=== PATIENT | female | born 1950 | race Caucasian/White ===

== ENCOUNTER → 2016-07-11 | Outpatient (CLI) | payer OTHER ==
[~2016-07-11] MED LIST: MELO-184 PO; losartan PO; tramadol PO
== END | disposition home or self-care (01) ==
LOC: STAR 13:54
PROVIDERS: ATTEND Orthopaedic Surgery
DX: Z01.818 Encounter for other preprocedural examination (principal); M17.12 Unilateral primary osteoarthritis, left knee
CPT/HCPCS: 87081

== ENCOUNTER 2016-07-15 10:15 | Inpatient (IN) | payer OTHER ==
[2016-07-11 14:25] VITALS: BP 160/102
[~2016-07-15] VITALS: Ht 154.9 cm; Wt 83.0 kg
[2016-07-15] MEDS ORDERED: VANCOMYCIN PER PHARMACY MC STA (10:30)
[2016-07-15] MEDS ORDERED: LACTATED RINGERS 1,000 ML IV SCH (10:53)
[2016-07-15] MEDS ORDERED: LIDOCAINE 1%, 2ML ONE (10:58)
[2016-07-15] MEDS ORDERED: VANCOMYCIN 1,200 MG in SODIUM CHLORIDE 0.9% 250 ML IV ONE (11:00)
[2016-07-15] MEDS ORDERED: OxyconTIN ER 10 MG TAB.ER PO ONE (11:00)
[2016-07-15] MEDS ORDERED: LIDOCAINE 1%, 2ML SQ PRN (11:30)
[2016-07-15] MEDS ORDERED: TRANEXAMIC ACID 100 MG/ML, 10ML ONE ×4 (12:16)
[2016-07-15] MEDS ORDERED: KETOROLAC 60 MG/2 ML ONE (12:16)
[2016-07-15] MEDS ORDERED: VANCOMYCIN 1,000 MG ONE (12:17)
[2016-07-15] MEDS ORDERED: ROPIvacaine/PF 0.2%, 20 ML ONE (12:17)
[2016-07-15] MEDS ORDERED: EPINEPHRINE 1 MG/ML, 1ML ONE (12:17)
[2016-07-15] MEDS ORDERED: SODIUM CHLORIDE 0.9% 50 ML ONE (12:17)
[2016-07-15] MEDS ORDERED: FENTANYL PF 250 MCG/5ML ONE (12:35)
[2016-07-15] MEDS ORDERED: ROCURONIUM 10 MG/ML ONE (12:42)
[2016-07-15] MEDS ORDERED: PROPOFOL 10 MG/ML, 20ML ONE (12:42)
[2016-07-15] MEDS ORDERED: ONDANSETRON 2MG/ML, 2ML ONE (12:42)
[2016-07-15] MEDS ORDERED: GLYCOPYRROLATE 0.2MG/1ML ONE (12:42)
[2016-07-15] MEDS ORDERED: hydrALAzine 20 MG/ML, 1ML ONE (12:42)
[2016-07-15] MEDS ORDERED: CEFAZOLIN 1,000 MG ONE (12:42)
[2016-07-15] MEDS ORDERED: DEXAMETHASONE 4 MG/ML, 1ML ONE (12:42)
[2016-07-15] MEDS ORDERED: METOPROLOL 1 MG/ML, 5ML ONE (12:42)
[2016-07-15] MEDS ORDERED: NEOSTIGMINE 1 MG/ML, 10ML ONE (12:42)
[2016-07-15] MEDS ORDERED: METOPROLOL 1 MG/ML, 5ML IV PRN (13:30)
[2016-07-15] MEDS ORDERED: HYDROmorphone 1 MG/ML, 1ML IV PRN ×2 (13:30→15:30)
[2016-07-15] MEDS ORDERED: HYDROcodone/APAP 7.5-325MG/15ML UDC PO PRN (13:30)
[2016-07-15] MEDS ORDERED: FENTANYL PF 100 MCG/2ML IV PRN (13:30)
[2016-07-15] MEDS ORDERED: MEPERIDINE/PF 25MG/0.5ML IVPush PRN (13:30)
[2016-07-15] MEDS ORDERED: hydrALAzine 20 MG/ML, 1ML IV PRN (13:30)
[2016-07-15] MEDS ORDERED: ACETAMINOPHEN 325 MG TABLET PO PRN (13:30)
[2016-07-15] MEDS ORDERED: ALBUTEROL/IPRATROPIUM 2.5MG/0.5MG, 3 ML NPPB PRN (13:30)
[2016-07-15] MEDS ORDERED: MIDAZOLAM 1 MG/ML, 2ML ONE (13:43)
[2016-07-15] MEDS ORDERED: FENTANYL PF 100 MCG/2ML ONE ×2 (14:02→15:34)
[2016-07-15] MEDS ORDERED: ONDANSETRON 4 MG TABLET PO PRN (15:30)
[2016-07-15] MEDS ORDERED: ONDANSETRON 2MG/ML, 2ML IV PRN (15:30)
[2016-07-15] MEDS ORDERED: PROMETHAZINE 12.5 MG SUPP PR PRN (15:30)
[2016-07-15] MEDS ORDERED: DIPHENHYDRAMINE 25 MG CAPSULE PO PRN (15:30)
[2016-07-15] MEDS ORDERED: SENNA/DOCUSATE TABLET PO PRN (15:30)
[2016-07-15] MEDS ORDERED: MAGNESIUM HYDROXIDE 8%, 30ML UDC PO PRN (15:30)
[2016-07-15] MEDS ORDERED: ACETAMINOPHEN 650 MG/20.3 ML UDC PO PRN (15:30)
[2016-07-15] MEDS ORDERED: PROMETHAZINE 25 MG/ML, 1ML IM PRN (15:30)
[2016-07-15] MEDS ORDERED: DIAZEPAM 5 MG TABLET PO PRN (15:30)
[2016-07-15] MEDS ORDERED: OXYcodone IR 5MG TABLET PO PRN (15:30)
[2016-07-15] MEDS ORDERED: LORazepam 1MG TABLET PO PRN (15:30)
[2016-07-15] MEDS ORDERED: BISACODYL 10 MG SUPP PR PRN (15:30)
[2016-07-15] MEDS ORDERED: HYDROmorphone 2 MG/ML, 1ML ONE (15:34)
[2016-07-15] MEDS ORDERED: TRANEXAMIC ACID 1,000 MG in SODIUM CHLORIDE 0.9% 100 ML IVPB ONE (16:00)
[2016-07-15 16:57] VITALS: BP 151/85
[2016-07-15] MEDS: D5%-0.45% NACL 1,000 ML IV SCH (16:57)
[2016-07-15] MEDS ORDERED: SCOPOLAMINE PATCH, 1.5MG PATCH.TD72 TD SCH (17:09)
[2016-07-15] MEDS: HYDROcodone/APAP 5/325 TABLET PO PRN (18:17)
[2016-07-15] MEDS: DOCUSATE 100 MG CAPSULE PO SCH (20:34)
[2016-07-15] MEDS: CEFAZOLIN PMX 2GM/50ML 50 ML IVPB SCH (20:35)
[2016-07-15 20:38] VITALS: BP 122/72
[2016-07-15 23:26] VITALS: BP 156/85
[2016-07-16] MEDS: D5%-0.45% NACL 1,000 ML IV SCH ×3 (00:02→08:00)
[2016-07-16] MEDS: HYDROcodone/APAP 5/325 TABLET PO PRN ×2 (00:07→07:59)
[2016-07-16 03:02] VITALS: BP 108/58
[2016-07-16] MEDS: CEFAZOLIN PMX 2GM/50ML 50 ML IVPB SCH (04:45)
[2016-07-16] MEDS ORDERED: DEXAMETHASONE 4 MG/ML, 1ML IVPush SCH (06:00)
[2016-07-16 06:40] VITALS: BP 138/82
[2016-07-16] MEDS: DOCUSATE 100 MG CAPSULE PO SCH (07:59)
[2016-07-16] MEDS ORDERED: MULTIVITAMINS/MINERALS TABLET PO SCH (09:00)
[2016-07-16] MEDS ORDERED: LOSARTAN 25MG TABLET PO SCH (09:00)
[2016-07-16] MEDS ORDERED: HYDR-3240 PO (11:46)
[2016-07-16] MEDS ORDERED: TRAM50TA2 PO (11:48)
[2016-07-16] MEDS ORDERED: ASPI-621 PO (11:48)
[2016-07-16] MEDS ORDERED: DIAZ5TAB PO (11:50)
[2016-07-16] MEDS ORDERED: ONDA4TAB10 PO (11:51)
[2016-07-16] MEDS ORDERED: CELE200C PO (11:52)
[2016-07-16] MEDS ORDERED: KETOROLAC 30 MG/1 ML IV SCH (17:00)
[2016-07-16] MEDS ORDERED: ASPIRIN 81 MG TABLET EC PO SCH (18:00)
[2016-07-18] MEDS ORDERED: SCOPOLAMINE PATCH, 1.5MG PATCH.TD72 TD PRN (17:09)
== END 2016-07-16 13:20 | disposition home or self-care (01) | DRG 470 ==
LOC: ORIP 10:15 → 4NOR 16:57 → DCLOUNGE 07-16 11:45
PROVIDERS: ADMIT Orthopaedic Surgery; ATTEND Orthopaedic Surgery
PROC: 0SRD0J9 Replacement of Left Knee Joint with Synthetic Substitute, Cemented, Open Approach (ICD-10-PCS; principal; 2016-07-15 14:45)
DX: M17.12 Unilateral primary osteoarthritis, left knee (principal); I10 Essential (primary) hypertension; K21.9 Gastro-esophageal reflux disease without esophagitis; F17.210 Nicotine dependence, cigarettes, uncomplicated; Z79.899 Other long term (current) drug therapy; Z82.49 Family history of ischemic heart disease and other diseases of the circulatory system; Z82.61 Family history of arthritis; Z98.51 Tubal ligation status; Z90.722 Acquired absence of ovaries, bilateral
CPT/HCPCS: 36415; 85014; 85018; 85610; 85730; C1713; J0171; J0690; J1100; J1170; J1885; J2250; J2405; J2704; J2710; J2795; J3010; J3370; J3490; C1776; J0360; J7050; J7120